=== PATIENT | male | born 1980 | race Caucasian/White ===

== ENCOUNTER 2024-05-01 06:00 | Day surgery (SDC) | payer BC ==
[~2024-05-01 06:00] MED LIST: Lactated Ringers 1,000 ML IV SCH; Morphine 8 MG, EPINEPHrine 0.3 MG, Cefuroxime 750 MG, Ketorolac 30 MG, Sodium Chloride ... PRN; Sodium Chloride 0.9% 10 ML Syringe FLUSH PRN; Sodium Chloride 0.9% 10 ML Syringe FLUSH SCH
[2024-05-01] MEDS: Lactated Ringers 1,000 ML IV SCH (06:05)
[2024-05-01] MEDS: Pregabalin 25 MG Cap PO ONE (06:06)
[2024-05-01] MEDS: oxyCODONE ER 10 MG TAB.ER PO ONE (06:06)
[2024-05-01] MEDS: Acetaminophen 325 MG Tab PO ONE (06:06)
[2024-05-01 06:22] LABS: BASOPHILS ABSOLUTE AUTO 0.1 K/mm3 (0.0-0.2); BASOPHILS PERCENT AUTO 0.6 % (0.0-1.0); EOSINOPHILS ABSOLUTE AUTO 0.1 K/mm3 (0.0-0.4); EOSINOPHILS PERCENT AUTO 1.5 % (0.0-6.0); HEMATOCRIT 46.2 % (42.0-52.0); HEMOGLOBIN 15.5 gm/dl (14.0-18.0); IMMATURE GRAN ABSOLUTE AUTO 0.03 K/mm3 (0.00-0.05); IMMATURE GRAN PERCENT AUTO 0.4 % (0.0-0.4); LYMPHOCYTES ABSOLUTE AUTO 2.3 K/mm3 (1.0-4.8); LYMPHOCYTES PERCENT AUTO 28.5 % (24.0-44.0); MEAN CORPUSCULAR HEMOGLOBIN 29.6 pg (28.0-32.0); MEAN CORPUSCULAR HGB CONC 33.5 g/dl (32.0-36.0); MEAN CORPUSCULAR VOLUME 88.3 fl (83.0-99.0); MEAN PLATELET VOLUME 8.9 fl (9.4-12.4); MONOCYTES ABSOLUTE AUTO 0.7 K/mm3 (0.0-0.8); MONOCYTES PERCENT AUTO 8.8 % (0.0-8.0); NEUTROPHILS ABSOLUTE AUTO 4.9 K/mm3 (1.8-7.7); NEUTROPHILS PERCENT AUTO 60.2 % (41.0-71.0); PLATELET COUNT,PLT 338 K/mm3 (150-400); RED BLOOD CELL COUNT 5.23 M/mm3 (4.52-5.90)
[2024-05-01] MEDS ORDERED: fentaNYL 100 MCG/2 ML SDV ONE (06:30)
[2024-05-01] MEDS ORDERED: Midazolam 1 MG/ML 2 ML SDV ONE (06:31)
[2024-05-01] MEDS ORDERED: Propofol 200 MG/20 ML SDV ONE ×5 (06:31→09:00)
[2024-05-01] MEDS ORDERED: ceFAZolin 2 GM Vial ONE (06:32)
[2024-05-01] MEDS ORDERED: Ondansetron 4 MG/2 ML SDV ONE (07:17)
[2024-05-01] MEDS ORDERED: Lactated Ringers 1,000 ML IV ONE (08:15)
[2024-05-01] MEDS: Morphine 8 MG, EPINEPHrine 0.3 MG, Cefuroxime 750 MG, Ketorolac 30 MG, Sodium Chloride ... PRN (08:58)
[2024-05-01] MEDS: Tranexamic Acid 1,000 MG/10 ML Vial ONE (08:58)
[2024-05-01] MEDS: VANCOmycin 1 GM SDV ONE (08:58)
[2024-05-01] MEDS ORDERED: Acetaminophen/HYDROcodone 325-5 MG Tab PO PRN (09:41)
[2024-05-01] MEDS: HYDROmorphone 0.5 MG/0.5 ML Syringe IVPUSH ONE (09:51)
[2024-05-01] MEDS ORDERED: Metoclopramide 10 MG/2 ML SDV IVPUSH ONE (10:00)
[2024-05-01] MEDS: Acetaminophen/HYDROcodone 325-5 MG Tab PO PRN (10:29)
== END 2024-05-01 12:40 | disposition home or self-care (01) ==
LOC: JD.SDS 06:00
PROVIDERS: ATTEND Orthopaedic Surgery
DX: M16.11 Unilateral primary osteoarthritis, right hip (principal); M91.11 Juvenile osteochondrosis of head of femur [Legg-Calve-Perthes], right leg; K21.9 Gastro-esophageal reflux disease without esophagitis; Z88.0 Allergy status to penicillin; Z79.899 Other long term (current) drug therapy; Z87.891 Personal history of nicotine dependence
CPT/HCPCS: 36415; 73501-26-RT; 73501-RT; 85025; 97116-GP; 97161-GP; A9270-GY; C1713; C1776; J0171; J0690; J0697; J1596; J1885; J2250; J2272; J2405; J2704; J3010; J3490; J7120